=== PATIENT | female | born 1995 | race Caucasian/White ===

== ENCOUNTER 2023-09-21 16:48 | Emergency (ER) | payer MEDICAID ==
[2023-09-21] MEDS: Lidocaine 4% Crm 5 GM Tube TOP ONE (17:35)
[2023-09-21 17:39] LABS: HEMATOCRIT 27.9 % (34.3-46.0); MEAN CORPUSCULAR HGB CONC 32.3 g/dL (31.6-35.5); MEAN CORPUSCULAR VOLUME 102.2 fL (81.4-99.0); PLATELET COUNT,PLT 273 K/uL (130-375); RED BLOOD CELL COUNT 2.73 M/uL (3.77-5.24); WHITE BLOOD CELL COUNT,WBC 19.4 K/uL (3.2-11.0)
[2023-09-21 17:59] LABS: A/G RATIO 0.4 (1.2-2.2); ALANINE AMINOTRANSFERASE,ALT 14 U/L (12-78); ALBUMIN 2.2 g/dL (3.4-5.0); ALKALINE PHOSPHATASE 163 U/L (46-116); ASPARTATE AMNIOTRANSFERASE,AST 48 U/L (15-37); BILIRUBIN TOTAL 1.6 mg/dL (0.2-1.0); BLOOD UREA NITROGEN,BUN 3 mg/dL (7-18); CALCIUM 8.7 mg/dL (8.5-10.1); CARBON DIOXIDE,CO2 25 mmol/L (21-32); CHLORIDE,CL 100 mmol/L (100-108); CREATININE 0.9 mg/dL (0.6-1.0); ESTIMATED GFR 90 mL/min (>60); GLUCOSE RANDOM 113 mg/dL (74-106); POTASSIUM,K 3.3 mmol/L (3.6-5.2); PROTEIN TOTAL,TP 7.9 g/dL (6.4-8.2); SODIUM,NA 135 mmol/L (140-148)
[2023-09-21 18:00] LABS: ANION GAP 13.3 mmol/L (5.0-14.0)
[2023-09-21 18:02] LABS: ATYPICAL LYMPHOCYTES FEW; LYMPHOCYTES ABSOLUTE MAN 4.07 K/uL (0.8-3.3); LYMPHOCYTES PERCENT MAN 21 % (24-44); METAMYELOCYTE ABSOLUTE MAN 0.19 K/uL; METAMYELOCYTE PERCENT MAN 1 %; MONOCYTES ABSOLUTE MAN 0.97 K/uL (0.20-0.90); MONOCYTES PERCENT MAN 5 % (2-6); NEUTROPHILS ABSOLUTE MAN 14.16 K/uL (1.0-7.6); SEG NEUTROPHILS PERCENT MAN 73 % (36-66)
[2023-09-21 18:09] LABS: INR 1.3; PROTHROMBIN TIME 12.9 sec (9.2-10.6); PTT,PARTIAL THROMBOPLSTIN TIME 30.5 sec (21.8-27.3)
[2023-09-21 18:28] LABS: APPEARANCE,URINE CLEAR (CLEAR); BILIRUBIN,URINE NEGATIVE (NEGATIVE); COLOR,URINE YELLOW (YELLOW); GLUCOSE,URINE NEGATIVE (NEGATIVE); KETONES,URINE NEGATIVE (NEGATIVE); LEUKOCYTE ESTERASE,URINE NEGATIVE (NEGATIVE); NITRITE,URINE NEGATIVE (NEGATIVE); OCCULT BLOOD,URINE NEGATIVE (NEGATIVE); PROTEIN,URINE NEGATIVE (NEGATIVE)
[2023-09-21 18:33] LABS: AMORPHOUS SEDIMENT,URINE NOT SEEN; AMPHETAMINES SCREEN, URINE NEGATIVE (NEGATIVE); BACTERIA,URINE FEW; BARBITURATE SCREEN,URINE NEGATIVE (NEGATIVE); BENZODIAZEPINES SCREEN,URINE PRESUMPTIVE POSITIVE (NEGATIVE); EPITHELIAL CELLS,URINE FEW; METHAMPHETAMINES SCREEN, URINE NEGATIVE (NEGATIVE); MUCUS,URINE RARE; RBC,URINE 0-5 (0-5); WBC,URINE 0-5 (0-5)
[2023-09-21 18:34] LABS: METHADONE SCREEN, URINE NEGATIVE (NEGATIVE); OXYCODONE SCREEN,URINE NEGATIVE (NEGATIVE); PROPOXYPHENE SCREEN,URINE NEGATIVE (NEGATIVE); THC SCREEN,URINE 50 NG/ML PRESUMPTIVE POSITIVE (NEGATIVE)
== END 2023-09-21 19:43 | disposition home or self-care (01) ==
LOC: JP.ED 16:48
DX: K72.10 Chronic hepatic failure without coma (principal); R21 Rash and other nonspecific skin eruption; Z88.1 Allergy status to other antibiotic agents; Z79.51 Long term (current) use of inhaled steroids; Z79.899 Other long term (current) drug therapy
CPT/HCPCS: 36415; 80053; 80305-QW; 80307; 81001; 81025; 82140; 85025; 85384; 85610; 85730; 99284

== ENCOUNTER 2024-11-25 14:28 | Emergency (ER) | payer MEDICAID | END 2024-11-25 16:23 | LOC: JP.ED 14:28 | DX: R56.9 Unspecified convulsions (principal); F10.930 Alcohol use, unspecified with withdrawal, uncomplicated; I10 Essential (primary) hypertension; J45.909 Unspecified asthma, uncomplicated; K21.9 Gastro-esophageal reflux disease without esophagitis; F17.200 Nicotine dependence, unspecified, uncomplicated; Z86.16 Personal history of COVID-19; Z88.1 Allergy status to other antibiotic agents; Z88.8 Allergy status to other drugs, medicaments and biological substances; Z79.51 Long term (current) use of inhaled steroids; Z79.899 Other long term (current) drug therapy | CPT/HCPCS: 99284 ==